=== PATIENT | female | born 1945 | race Caucasian/White ===

== ENCOUNTER 2018-10-20 07:37 | Observation (INO) | payer BC ==
[~2018-10-20 07:37] MED LIST: CEFAZOLIN 2 GM/50 ML (PMX) 50 ML IVPB
[2018-10-20 08:17] LABS: ADD MAN DIFF? NO
[2018-10-20 08:20] LABS: WHITE BLOOD COUNT 8.9 10^3/ul (4.8-10.8)
[2018-10-20 08:20] LABS: BASOPHIL # 0.1 10^3/ul (0.0-0.1); BASOPHILS % 0.7 % (0.0-2.0); EOSINOPHILS # 0.3 10^3/ul (0.0-0.5); EOSINOPHILS % 3.6 % (0.0-7.0); HEMATOCRIT 42.7 % (37.0-47.0); LYMPHOCYTES # 2.2 10^3/ul (0.8-2.9); LYMPHOCYTES % 24.9 % (15.0-51.0); MEAN CORPUSCULAR HEMOGLOBIN 28.6 pg (29.0-33.0); MEAN CORPUSCULAR HGB CONC 32.8 g/dl (32.0-37.0); MEAN CORPUSCULAR VOLUME 87.1 fl (82.0-101.0); MEAN PLATELET VOLUME 9.9 fl (7.4-10.4); MONOCYTE # 0.5 10^3/ul (0.3-0.9); NEUTROPHIL # 5.8 10^3/ul (1.6-7.5); NEUTROPHILS % 65.4 % (39.0-77.0); PLATELET COUNT 229 10^3/UL (140-415); RED CELL DISTRIBUTION WIDTH 13.8 % (11.5-14.5)
[2018-10-20 08:40] LABS: PARTIAL THROMBOPLASTIN TIME 26.2 Sec (23.0-35.0); PROTIME 12.3 Sec (11.9-14.9)
[2018-10-20 08:56] LABS: ALANINE AMINOTRANSFERASE 38 IU/L (13-69); ALBUMIN 4.2 g/dl (3.3-4.9); ALBUMIN/GLOBULIN RATIO 1.07; ALKALINE PHOSPHATASE 115 IU/L (42-121); ANION GAP 8 (5-13); ASPARTATE AMINO TRANSFERASE 28 IU/L (15-46); BILIRUBIN,INDIRECT 1.6 mg/dl (0-1.1); BILIRUBIN,TOTAL 1.6 mg/dl (0.2-1.3); BLOOD UREA NITROGEN 11 mg/dl (7-20); CARBON DIOXIDE 25 mmol/L (21-31); CHLORIDE 107 mmol/L (97-110); CREATININE 0.55 mg/dl (0.44-1.00); GLUCOSE 118 mg/dl (70-220); SODIUM 140 mmol/L (135-144); TOTAL PROTEIN 8.1 g/dl (6.1-8.1)
[2018-10-20 09:00] LABS: CALCIUM 10.5 mg/dl (8.4-10.2)
[2018-10-20] MEDS: SOD CHLORIDE 0.9% 1,000 ML IV (11:11)
[2018-10-20] MEDS ORDERED: PROPOFOL 20 ML (12:22)
[2018-10-20] MEDS ORDERED: CEFAZOLIN 1 GM INJ ×2 (12:22→14:06)
[2018-10-20] MEDS ORDERED: ROCURONIUM 50 MG INJ (12:22)
[2018-10-20] MEDS ORDERED: FENTAnyl 50 MCG/ML VIAL (12:22)
[2018-10-20] MEDS ORDERED: MIDAZOLAM 1 MG/ML 2 ML INJ (12:22)
[2018-10-20] MEDS ORDERED: DIPHENHYDRAMINE 50 MG INJ IV (12:30)
[2018-10-20] MEDS ORDERED: FENTAnyl 50 MCG/ML VIAL IV (12:30)
[2018-10-20] MEDS ORDERED: hydrALAzine 20 MG INJ IV (12:30)
[2018-10-20] MEDS ORDERED: EPHEDrine 25 MG/5 ML SYG IV (12:30)
[2018-10-20] MEDS ORDERED: HYDROmorphONE 1 MG/5 ML IV SYRINGE IV ×3 (12:30)
[2018-10-20] MEDS ORDERED: LABETALOL HCL 20MG INJ IV (12:30)
[2018-10-20] MEDS ORDERED: ONDANSETRON 4 MG INJ IV ×2 (12:30→15:00)
[2018-10-20] MEDS ORDERED: METOCLOPRAMIDE 10 MG INJ IV (12:30)
[2018-10-20] MEDS ORDERED: OXYCODONE/ACETAMINOPHEN (5/325) TAB PO (12:30)
[2018-10-20] MEDS ORDERED: MEPERIDINE 25 MG INJ IV (12:30)
[2018-10-20] MEDS: ISOSULFAN BLUE 1% 5 ML INJ SC (13:50)
[2018-10-20] MEDS ORDERED: SUGAMMADEX SODIUM 200 MG/2 ML VIAL IV (14:03)
[2018-10-20] MEDS ORDERED: METOCLOPRAMIDE 10 MG INJ (14:03)
[2018-10-20] MEDS ORDERED: DEXAMETHASONE 4 MG/ML 5 ML INJ (14:03)
[2018-10-20] MEDS ORDERED: ONDANSETRON 4 MG INJ (14:03)
[2018-10-20] MEDS: FENTAnyl 50 MCG/ML VIAL IV ×2 (14:44→15:45)
[2018-10-20] MEDS ORDERED: morphine 2 MG INJ IV (15:00)
[2018-10-20] MEDS ORDERED: ACETAMINOPHEN 1000MG/100ML IV 100 ML IVPB (15:00)
[2018-10-20] MEDS: D5W-0.45 NACL + KCL 20 MEQ 1,000 ML IV (20:06)
[2018-10-20] MEDS: RANITIDINE 150 MG TAB PO (20:44)
[2018-10-20] MEDS: GABAPENTIN 300 MG CAP PO (20:44)
[2018-10-20] MEDS: ATORVASTATIN 40 MG TAB PO (20:44)
[2018-10-20] MEDS: HYDROCODONE/APAP (5/325) TAB PO (20:49)
[2018-10-20] MEDS ORDERED: FLUTICASONE 0.05% 16 GM NAS SPRAY NASAL (21:00)
[2018-10-20] MEDS ORDERED: DULOXETINE 20 MG CAP DR PO (21:00)
[2018-10-21] MEDS: KETOROLAC 30 MG INJ IV ×2 (01:59→08:21)
[2018-10-21] MEDS: D5W-0.45 NACL + KCL 20 MEQ 1,000 ML IV ×3 (05:19→14:49)
[2018-10-21 06:05] LABS: ADD MAN DIFF? NO
[2018-10-21 06:10] LABS: BASOPHILS % 0.1 % (0.0-2.0); HEMATOCRIT 40.9 % (37.0-47.0); HEMOGLOBIN 13.1 g/dl (12.0-16.0); LYMPHOCYTES # 0.9 10^3/ul (0.8-2.9); LYMPHOCYTES % 9.3 % (15.0-51.0); MEAN CORPUSCULAR HEMOGLOBIN 28.3 pg (29.0-33.0); MEAN CORPUSCULAR VOLUME 88.3 fl (82.0-101.0); MEAN PLATELET VOLUME 10.1 fl (7.4-10.4); MONOCYTE # 0.2 10^3/ul (0.3-0.9); NEUTROPHIL # 8.6 10^3/ul (1.6-7.5); NEUTROPHILS % 88.1 % (39.0-77.0); PLATELET COUNT 211 10^3/UL (140-415); RED BLOOD COUNT 4.63 10^6/ul (4.20-5.40); RED CELL DISTRIBUTION WIDTH 14.1 % (11.5-14.5)
[2018-10-21 06:10] LABS: WHITE BLOOD COUNT 9.8 10^3/ul (4.8-10.8)
[2018-10-21 06:42] LABS: ALANINE AMINOTRANSFERASE 23 IU/L (13-69); ALBUMIN 3.8 g/dl (3.3-4.9); ALBUMIN/GLOBULIN RATIO 1.11; ALKALINE PHOSPHATASE 84 IU/L (42-121); ANION GAP 9 (5-13); ASPARTATE AMINO TRANSFERASE 21 IU/L (15-46); BILIRUBIN,INDIRECT 0.8 mg/dl (0-1.1); BILIRUBIN,TOTAL 0.8 mg/dl (0.2-1.3); BLOOD UREA NITROGEN 13 mg/dl (7-20); CALCIUM 9.8 mg/dl (8.4-10.2); CARBON DIOXIDE 25 mmol/L (21-31); CHLORIDE 106 mmol/L (97-110); CREATININE 0.61 mg/dl (0.44-1.00); GLUCOSE 189 mg/dl (70-220); POTASSIUM 4.6 mmol/L (3.5-5.1); SODIUM 140 mmol/L (135-144); TOTAL PROTEIN 7.2 g/dl (6.1-8.1)
[2018-10-21] MEDS: LOSARTAN 50 MG TAB PO (08:20)
[2018-10-21] MEDS: GABAPENTIN 300 MG CAP PO (08:20)
[2018-10-21] MEDS: RANITIDINE 150 MG TAB PO (08:20)
[2018-10-21] MEDS ORDERED: HYDROCHLOROTHIAZIDE 12.5 MG CAP PO (09:00)
== END 2018-10-21 19:21 | disposition home or self-care (01) ==
LOC: SDS 07:37 → PP2 16:52 → SDS 14:51 → REC 15:05 → PP2 17:23
DX: C50.211 Malignant neoplasm of upper-inner quadrant of right female breast (principal); Z17.0 Estrogen receptor positive status [ER+]; I10 Essential (primary) hypertension; E83.52 Hypercalcemia
CPT/HCPCS: 19301; 71045; 80053; 85025; 85610; 85730; 88307; 88331; 93005; 99217

== ENCOUNTER 2018-10-24 11:23 | Emergency (ER) | payer BC | END 2018-10-24 13:25 | disposition home or self-care (01) | LOC: E/R 11:23 | DX: T81.31XA Disruption of external operation (surgical) wound, not elsewhere classified, initial encounter (principal); Y82.8 Other medical devices associated with adverse incidents | CPT/HCPCS: 99282 ==